=== PATIENT | male | born 1950 | race Two or more races ===

== ENCOUNTER 2017-05-23 05:06 | Inpatient (IN) | payer MEDICARE, MEDICAID ==
[~2017-05-23] VITALS: Ht 177.8 cm; Wt 76.5 kg
[~2017-05-23 05:06] MED LIST: AMLO5TAB2 PO; ASPI-498 OR; ATOR20TA50 PO; CLINDAMYCIN; CLOP75TA41 PO; FENO160T8 PO; ICOS1CAP OR; LISI-275 PO; METF-370 PO; METO1TAB9 PO; OMEP20CA74 OR; PRAVASTATIN PO
[2017-05-23 06:05] LABS: Urine RBC None Seen /hpf (0 - 3)
[2017-05-23 06:22] LABS: Urine Bilirubin Negative (Negative); Urine Blood Negative /uL (Negative); Urine Color Yellow (Yellow); Urine Glucose 1+ mg/dL (Normal); Urine Ketone Negative (Negative); Urine Mucus FEW (None Seen); Urine Nitrite Negative (Negative); Urine Squamous Epithelial Cell FEW /hpf (<5); Urine Urobilinogen Normal (Negative); Urine pH 5.5 (5.0-8.0)
[2017-05-23 06:23] LABS: Hematocrit 37.8 % (41.0-53.0); Hemoglobin 12.7 g/dL (13.5-17.5); Mean Corpuscular Hgb Conc. 33.6 g/dL (32.0-36.0); Mean Corpuscular Volume 89.3 fL (80.0-100.0); Mean Platelet Volume 8.1 fL (6.9-10.8); Platelet Count (auto) 210 10^3/uL (140-450); Red Cell Distribution Width 15.3 % (11.8-14.3); White Blood Cell 6.6 10^3/uL (4.4-10.8)
[2017-05-23 06:28] LABS: INR 0.92 (0.9-1.15)
[2017-05-23 06:40] LABS: Albumin 3.8 g/dL (3.4-5.0); Calcium 8.9 mg/dL (8.5-10.1)
[2017-05-23 06:43] LABS: BUN/Creatinine Ratio 21.5
[2017-05-23 06:46] LABS: Bilirubin, Total 0.3 mg/dL (0.2-1.0); Total Protein 7.4 g/dL (6.4-8.2)
[2017-05-23 07:01] LABS: Potassium 5.6 mmol/L (3.5-5.1)
[2017-05-23] MEDS ORDERED: ACET-3 PO (08:10)
[2017-05-23] MEDS ORDERED: ICOS1CAP OR (08:10)
[2017-05-23] MEDS ORDERED: INSUINJ49 SC (08:10)
[2017-05-23] MEDS ORDERED: LORA-622 PO (08:10)
[2017-05-23] MEDS ORDERED: SULF400T11 PO (08:11)
[2017-05-23] MEDS ORDERED: DOXY-216 PO (08:11)
[2017-05-23] MEDS ORDERED: FUROSEMIDE 40 MG/4 ML VIAL IV ONE (09:45)
[2017-05-23] MEDS: METOPROLOL SUCCINATE XL 50 MG TAB PO SCH (10:00)
[2017-05-23] MEDS ORDERED: PROPOFOL 10 MG/ML 20 ML IV ONE (10:09)
[2017-05-23] MEDS ORDERED: LIDOCAINE HCL 2 %PF INJ 10ML AMP IJ ONE (10:09)
[2017-05-23] MEDS ORDERED: NEOSTIGMINE 1 MG/ML INJ (10mg/10ML VIAL) ONE (10:19)
[2017-05-23] MEDS ORDERED: GLYCOPYRROLATE 0.2 MG/ML 1ML VIAL ONE (10:19)
[2017-05-23] MEDS: SODIUM CHLORIDE 0.9% 1,000 ML IV SCH ×2 (10:25→20:25)
[2017-05-23] MEDS ORDERED: MORPHINE SULF INJ 2 MG/ML SYRINGE 1ML IV PRN (10:30)
[2017-05-23] MEDS ORDERED: PROMETHAZINE HCL 25 MG/ML 1ML IV PRN (10:30)
[2017-05-23] MEDS ORDERED: DEXTROSE (50%) 50ML SYRG IV ONE (10:30)
[2017-05-23] MEDS ORDERED: DEXTROSE (50%) 50ML SYRG IV PRN (10:30)
[2017-05-23] MEDS ORDERED: ALBUTEROL SULF 2.5 MG/0.5ML(0.5%) NEB SOLN NEB ONE (10:30)
[2017-05-23] MEDS ORDERED: ACETAMINOPHEN 500 MG TAB PO PRN (10:30)
[2017-05-23] MEDS ORDERED: InsuLIN REG 1unit/0.01ml Soln (100units/ml) IV ONE (10:30)
[2017-05-23] MEDS ORDERED: NITROGLYCERIN 0.4 MG SL TAB SL PRN (10:30)
[2017-05-23] MEDS ORDERED: TEMAZEPAM 15 MG CAP PO PRN (10:30)
[2017-05-23] MEDS ORDERED: LORazepam 0.5 MG TAB PO PRN (10:30)
[2017-05-23] MEDS ORDERED: MORPHINE SULFATE 4 MG/ML SYRG IV PRN (10:30)
[2017-05-23] MEDS ORDERED: LACTULOSE 20Gm/30ML SOLN PO PRN (10:30)
[2017-05-23] MEDS ORDERED: SODIUM BICARBONATE 8.4 % INJ 50ML VIAL IV ONE (10:30)
[2017-05-23] MEDS ORDERED: amLODIPine BESYLATE 5 MG TAB PO ONE (10:45)
[2017-05-23] MEDS ORDERED: cefTRIAXone 1GM/10ml IVPUSH 10 ML IV ONE (10:45)
[2017-05-23] MEDS ORDERED: METOPROLOL SUCCINATE XL 50 MG TAB PO ONE (10:45)
[2017-05-23] MEDS ORDERED: MIDAZOLAM HCL 1MG/1ML-2 ML VIAL ONE (10:55)
[2017-05-23] MEDS ORDERED: CLINDAMYCIN 600MG IV 50 ML IV ONE (11:00)
[2017-05-23] MEDS ORDERED: METOCLOPRAMIDE HCL 5MG/ml INJ 2ml VIAL ONE (11:04)
[2017-05-23] MEDS ORDERED: fentaNYL CITRATE 100 MCG/2 ML VL ONE (11:07)
[2017-05-23] MEDS ORDERED: ONDANSETRON HCL 4 MG/2 ML VIAL IV ONE (11:15)
[2017-05-23] MEDS ORDERED: hydrALAZINE HCL 20 MG/ML VL IV PRN (11:15)
[2017-05-23] MEDS ORDERED: NALOXONE HCL 0.4 MG/ML VIAL IV PRN (11:15)
[2017-05-23] MEDS ORDERED: ACCU-CHEK COMFORT CURVE STRIP VI ONE (11:15)
[2017-05-23] MEDS ORDERED: HYDROmorphone HCL 2 MG/ML VL IV PRN (11:15)
[2017-05-23 11:19] LABS: Albumin 3.8 g/dL (3.4-5.0); BUN/Creatinine Ratio 20.2; Bilirubin, Total 0.3 mg/dL (0.2-1.0); Calcium 8.8 mg/dL (8.5-10.1); Total Protein 7.3 g/dL (6.4-8.2)
[2017-05-23 11:28] LABS: Potassium 5.9 mmol/L (3.5-5.1)
[2017-05-23] MEDS: ACCU-CHEK COMFORT CURVE STRIP VI SCH ×3 (11:30→21:55)
[2017-05-23] MEDS: InsuLIN REG 1unit/0.01ml Soln (100units/ml) SC SCH ×3 (11:30→22:18)
[2017-05-23] MEDS: HYDROcodone-ACET 5/325MG TAB PO PRN ×2 (13:34→18:49)
[2017-05-23 14:00] VITALS: BP 120/63
[2017-05-23] MEDS ORDERED: CLINDAMYCIN 600MG IV 50 ML IV SCH (14:00)
[2017-05-23 17:00] VITALS: BP 103/52
[2017-05-23] MEDS: CLINDAMYCIN 600MG IV 50 ML IV SCH (17:00)
[2017-05-23 17:12] VITALS: BP 102/59
[2017-05-23] MEDS: ATORVASTATIN 20 MG TAB PO SCH (21:56)
[2017-05-23] MEDS: [UNRECOGNIZED DRUG - OTHER] PO SCH (22:00)
[2017-05-23] MEDS: ICOSAPENT ETHYL PO SCH (22:00)
[2017-05-23 22:43] VITALS: BP 111/55
[2017-05-24] MEDS: CLINDAMYCIN 600MG IV 50 ML IV SCH ×3 (01:13→18:06)
[2017-05-24 05:10] VITALS: BP 128/60
[2017-05-24] MEDS: SODIUM CHLORIDE 0.9% 1,000 ML IV SCH ×2 (06:13→16:34)
[2017-05-24 06:30] LABS: Albumin 3.3 g/dL (3.4-5.0); BUN/Creatinine Ratio 15.6; Bilirubin, Total 0.3 mg/dL (0.2-1.0); Calcium 8.5 mg/dL (8.5-10.1); Potassium 5.2 mmol/L (3.5-5.1); Total Protein 6.6 g/dL (6.4-8.2)
[2017-05-24] MEDS: ACCU-CHEK COMFORT CURVE STRIP VI SCH ×4 (07:16→22:00)
[2017-05-24] MEDS: InsuLIN REG 1unit/0.01ml Soln (100units/ml) SC SCH ×4 (07:17→22:35)
[2017-05-24 09:00] VITALS: BP 129/59
[2017-05-24] MEDS: amLODIPine BESYLATE 5 MG TAB PO SCH (09:41)
[2017-05-24] MEDS: PANTOPRAZOLE 40 MG TAB PO SCH (09:42)
[2017-05-24] MEDS: METOPROLOL SUCCINATE XL 50 MG TAB PO SCH (09:42)
[2017-05-24] MEDS: cefTRIAXone 1GM/10ml IVPUSH 10 ML IV SCH (09:49)
[2017-05-24] MEDS: ICOSAPENT ETHYL PO SCH ×2 (09:49→22:00)
[2017-05-24] MEDS: [UNRECOGNIZED DRUG - OTHER] PO SCH ×2 (09:49→22:00)
[2017-05-24] MEDS: TRICOR PO SCH (09:50)
[2017-05-24] MEDS ORDERED: SODIUM POLYSTYRENE SULF 15GM/60ML SUSP PO ONE (10:00)
[2017-05-24] MEDS ORDERED: INFLUENZA QUAD 2017-2018 0.5 ML SYRG IM ONE (10:00)
[2017-05-24] MEDS ORDERED: LIDOCAINE 1% HCL (LOCAL ANESTH.) INJ 20ML MDV ID ONE (14:00)
[2017-05-24 17:00] VITALS: BP 144/68
[2017-05-24 22:00] VITALS: BP 122/55
[2017-05-24] MEDS: SODIUM CHLOR 0.9% PF (SALINE LOCK) 10ML VIAL IV SCH (22:00)
[2017-05-24] MEDS: ATORVASTATIN 20 MG TAB PO SCH (22:24)
[2017-05-25] MEDS: CLINDAMYCIN 600MG IV 50 ML IV SCH ×3 (02:26→18:33)
[2017-05-25] MEDS: SODIUM CHLORIDE 0.9% 1,000 ML IV SCH ×3 (02:27→21:41)
[2017-05-25 05:00] VITALS: BP 132/60
[2017-05-25] MEDS: InsuLIN REG 1unit/0.01ml Soln (100units/ml) SC SCH ×4 (06:55→21:41)
[2017-05-25] MEDS: ACCU-CHEK COMFORT CURVE STRIP VI SCH ×4 (06:55→21:37)
[2017-05-25 07:53] LABS: BUN/Creatinine Ratio 12.9; Calcium 8.1 mg/dL (8.5-10.1); Potassium 4.2 mmol/L (3.5-5.1)
[2017-05-25 08:00] VITALS: BP 120/59
[2017-05-25 09:00] VITALS: BP 120/59
[2017-05-25] MEDS: PANTOPRAZOLE 40 MG TAB PO SCH (09:31)
[2017-05-25] MEDS: cefTRIAXone 1GM/10ml IVPUSH 10 ML IV SCH (09:31)
[2017-05-25] MEDS: SODIUM CHLOR 0.9% PF (SALINE LOCK) 10ML VIAL IV SCH ×2 (09:31→21:37)
[2017-05-25] MEDS: amLODIPine BESYLATE 5 MG TAB PO SCH (09:32)
[2017-05-25] MEDS: METOPROLOL SUCCINATE XL 50 MG TAB PO SCH (09:32)
[2017-05-25] MEDS: [UNRECOGNIZED DRUG - OTHER] PO SCH ×2 (09:33→21:37)
[2017-05-25] MEDS: ICOSAPENT ETHYL PO SCH ×2 (09:33→21:37)
[2017-05-25] MEDS: TRICOR PO SCH (09:34)
[2017-05-25] MEDS ORDERED: MORPHINE SULFATE 4 MG/ML SYRG IV PRN (12:00)
[2017-05-25 13:00] VITALS: BP 131/57
[2017-05-25 17:14] VITALS: BP 156/66
[2017-05-25] MEDS: ATORVASTATIN 20 MG TAB PO SCH (21:37)
[2017-05-25 22:00] VITALS: BP 150/70
[2017-05-26] VITALS (7 sets, daily range): BP systolic 142–160; BP diastolic 59–68
[2017-05-26] MEDS: CLINDAMYCIN 600MG IV 50 ML IV SCH ×2 (00:23→10:12)
[2017-05-26] MEDS: ACCU-CHEK COMFORT CURVE STRIP VI SCH ×2 (06:29→11:30)
[2017-05-26] MEDS: InsuLIN REG 1unit/0.01ml Soln (100units/ml) SC SCH ×2 (06:53→13:00)
[2017-05-26] MEDS: SODIUM CHLORIDE 0.9% 1,000 ML IV SCH (08:14)
[2017-05-26] MEDS: ICOSAPENT ETHYL PO SCH (10:00)
[2017-05-26] MEDS: [UNRECOGNIZED DRUG - OTHER] PO SCH (10:00)
[2017-05-26] MEDS: TRICOR PO SCH (10:00)
[2017-05-26] MEDS: cefTRIAXone 1GM/10ml IVPUSH 10 ML IV SCH (10:12)
[2017-05-26] MEDS: SODIUM CHLOR 0.9% PF (SALINE LOCK) 10ML VIAL IV SCH (10:12)
[2017-05-26] MEDS: amLODIPine BESYLATE 5 MG TAB PO SCH (10:13)
[2017-05-26] MEDS: PANTOPRAZOLE 40 MG TAB PO SCH (10:13)
[2017-05-26] MEDS: METOPROLOL SUCCINATE XL 50 MG TAB PO SCH (10:14)
== END 2017-05-26 17:53 | disposition home or self-care (01) | DRG 623 ==
LOC: ER 05:11 → OR 1 05:12 → TELE-WESTW 05:13
PROVIDERS: ADMIT Podiatrist Foot & Ankle Surgery; ATTEND Family Medicine
PROC: 02HV33Z Insertion of Infusion Device into Superior Vena Cava, Percutaneous Approach (ICD-10-PCS; 2017-05-23)
PROC: 0JBR0ZZ Excision of Left Foot Subcutaneous Tissue and Fascia, Open Approach (ICD-10-PCS; 2017-05-23)
PROC: 0HRNXK3 Replacement of Left Foot Skin with Nonautologous Tissue Substitute, Full Thickness, External Approach (ICD-10-PCS; principal; 2017-05-23 11:06)
DX: E11.621 Type 2 diabetes mellitus with foot ulcer (principal); E87.1 Hypo-osmolality and hyponatremia; L97.529 Non-pressure chronic ulcer of other part of left foot with unspecified severity; E11.21 Type 2 diabetes mellitus with diabetic nephropathy; E11.40 Type 2 diabetes mellitus with diabetic neuropathy, unspecified; E11.52 Type 2 diabetes mellitus with diabetic peripheral angiopathy with gangrene; L03.116 Cellulitis of left lower limb; E11.65 Type 2 diabetes mellitus with hyperglycemia; E87.5 Hyperkalemia; E78.5 Hyperlipidemia, unspecified; F17.210 Nicotine dependence, cigarettes, uncomplicated; I10 Essential (primary) hypertension; L08.9 Local infection of the skin and subcutaneous tissue, unspecified; Z82.49 Family history of ischemic heart disease and other diseases of the circulatory system; Z83.3 Family history of diabetes mellitus; Z88.0 Allergy status to penicillin; Z89.432 Acquired absence of left foot; Z90.49 Acquired absence of other specified parts of digestive tract; Z23 Encounter for immunization
CPT/HCPCS: 36415; 36569; 71010; 71020; 80048; 80053; 80061; 81001; 82962; 83036; 84132; 85007; 85027; 85610; 85652; 85730; 87070; 87075; 87076; 87077; 87081; 87186; 93005; 94644; J1815; J2250; J2704; J3490

== ENCOUNTER → 2017-07-10 | Emergency (ER) | payer MEDICARE, MEDICAID ==
[~2017-07-10] MED LIST changes: +ACET-3 PO; -CLINDAMYCIN; +CLINDAMYCIN 600MG IV 50 ML IV ONE; +DOXY-216 PO; +INSUINJ49 SC; +LORA-622 PO; -PRAVASTATIN PO; +SULF400T11 PO
== END | disposition left against medical advice (07) ==
LOC: ER 21:02
DX: M79.673 Pain in unspecified foot (principal); Z53.21 Procedure and treatment not carried out due to patient leaving prior to being seen by health care provider

== ENCOUNTER 2017-07-11 04:10 | Day surgery (SDC) | payer MEDICARE, MEDICAID ==
[~2017-07-11] VITALS: Ht 172.7 cm; Wt 79.4 kg
[~2017-07-11 04:10] MED LIST changes: -CLINDAMYCIN 600MG IV 50 ML IV ONE
[2017-07-11 04:40] LABS: Basophils # (auto) 0.1 uL; Basophils % (auto) 0.9 % (0.0-2.0); Eosinophils # (auto) 0.2 uL; Eosinophils % (auto) 2.5 % (0.0-7.0); Hemoglobin 14.2 g/dL (13.5-17.5); Lymphocytes # (auto) 2.1 uL; Lymphocytes % (auto) 27.7 % (10.0-50.0); Mean Corpuscular Hemoglobin 31.1 pg (28.0-32.0); Mean Corpuscular Hgb Conc. 33.9 g/dL (32.0-36.0); Mean Corpuscular Volume 91.8 fL (80.0-100.0); Monocytes # (auto) 0.6 uL; Monocytes % (auto) 7.3 % (0.0-12.0); Neutrophils # (auto) 4.7 uL; Neutrophils % (auto) 61.6 % (37.0-80.0); Nucleated Red Blood Cells % 0.1 %; Platelet Count (auto) 228 10^3/uL (140-450); Red Blood Cells 4.57 10^6/uL (4.5-5.90); Red Cell Distribution Width 15.3 % (11.8-14.3); White Blood Cell 7.6 10^3/uL (4.4-10.8)
[2017-07-11 04:54] LABS: Albumin 3.7 g/dL (3.4-5.0); Calcium 9.1 mg/dL (8.5-10.1); Potassium 4.3 mmol/L (3.5-5.1)
[2017-07-11 04:55] LABS: BUN/Creatinine Ratio 17.7
[2017-07-11 04:59] LABS: Bilirubin, Total 0.3 mg/dL (0.2-1.0); Total Protein 7.2 g/dL (6.4-8.2)
[2017-07-11] MEDS ORDERED: SODIUM CHLORIDE 0.9% 1,000 ML IV ONE (08:27)
[2017-07-11 09:38] LABS: Urine Bacteria NONE SEEN /hpf (None Seen); Urine Blood TRACE /uL (Negative); Urine Mucus FEW (None Seen); Urine Specific Gravity 1.028 (1.001-1.035); Urine WBC 2 /hpf (0 - 3)
[2017-07-11 09:42] LABS: INR 0.92 (0.9-1.15)
[2017-07-11] MEDS ORDERED: NEOMYCIN-BACITRACIN-POLYM 15GM TOP OINT TOP ONE (10:47)
[2017-07-11] MEDS ORDERED: ceFAZolin 1GM VL ONE (10:47)
[2017-07-11] MEDS ORDERED: BUPIVACAINE 0.75% INJ 10ML MPV SDV IJ ONE (10:47)
[2017-07-11] MEDS ORDERED: PROPOFOL 10 MG/ML 20 ML IV ONE (11:21)
[2017-07-11] MEDS ORDERED: MIDAZOLAM HCL 1MG/1ML-2 ML VIAL ONE (11:21)
[2017-07-11] MEDS ORDERED: fentaNYL CITRATE 100 MCG/2 ML VL ONE (11:21)
[2017-07-11] MEDS ORDERED: MORPHINE SULFATE 4 MG/ML SYR/VIAL IV PRN (12:00)
[2017-07-11] MEDS ORDERED: hydrALAZINE HCL 20 MG/ML VL IV PRN (12:00)
[2017-07-11] MEDS ORDERED: ePHEDrine SULFATE 50 MG/ML AMP IV PRN (12:00)
[2017-07-11] MEDS ORDERED: ONDANSETRON HCL 4 MG/2 ML VIAL IV ONE (12:00)
[2017-07-11 13:15] VITALS: BP 142/72
== END 2017-07-11 13:15 | disposition home or self-care (01) ==
LOC: ER 04:10 → SUR 04:11 → ER 19:39
PROVIDERS: ATTEND Podiatrist
DX: L97.429 Non-pressure chronic ulcer of left heel and midfoot with unspecified severity (principal); Z88.0 Allergy status to penicillin; E66.9 Obesity, unspecified; Z68.26 Body mass index [BMI] 26.0-26.9, adult; E78.00 Pure hypercholesterolemia, unspecified; I10 Essential (primary) hypertension; E11.9 Type 2 diabetes mellitus without complications; F41.9 Anxiety disorder, unspecified; F17.210 Nicotine dependence, cigarettes, uncomplicated
CPT/HCPCS: 15004; 15275; 36415; 71046; 73630; 80053; 81001; 83735; 84443; 85025; 85610; 85730; 87070; 87075; 87076; 87205; 88304; 93005; J2250; J2704; J3010; J3490; 87077; 87186; J0690

== ENCOUNTER → 2017-08-08 | Outpatient (CLI) | payer MEDICARE, MEDICAID ==
[2017-08-08 09:41] LABS: Basophils # (auto) 0.1 uL; Basophils % (auto) 0.9 % (0.0-2.0); Eosinophils # (auto) 0.1 uL; Eosinophils % (auto) 1.8 % (0.0-7.0); Hematocrit 48.6 % (41.0-53.0); Hemoglobin 16.4 g/dL (13.5-17.5); Lymphocytes # (auto) 1.3 uL; Lymphocytes % (auto) 20.4 % (10.0-50.0); Mean Corpuscular Hemoglobin 30.7 pg (28.0-32.0); Mean Corpuscular Hgb Conc. 33.8 g/dL (32.0-36.0); Mean Corpuscular Volume 90.9 fL (80.0-100.0); Monocytes # (auto) 0.4 uL; Monocytes % (auto) 5.8 % (0.0-12.0); Neutrophils # (auto) 4.6 uL; Neutrophils % (auto) 71.1 % (37.0-80.0); Platelet Count (auto) 229 10^3/uL (140-450); Red Blood Cells 5.34 10^6/uL (4.5-5.90); White Blood Cell 6.5 10^3/uL (4.4-10.8)
[2017-08-08 09:45] LABS: Urine Bacteria NONE SEEN /hpf (None Seen); Urine Blood TRACE /uL (Negative); Urine Specific Gravity 1.008 (1.001-1.035); Urine WBC <1 /hpf (0 - 3)
[2017-08-08 10:09] LABS: Anion Gap 8 (5-15); BUN/Creatinine Ratio 14.2; Blood Urea Nitrogen 16 mg/dL (7-18); Calcium 9.3 mg/dL (8.5-10.1); Carbon Dioxide 28 mmol/L (21-32); Chloride 100 mmol/L (98-107); Cholesterol 163 mg/dL (< 200); GFR African American 83 mL/min; GFR Non-African American 69 mL/min; Glucose 199 mg/dL (74-106); HDL Cholesterol 27 mg/dL (40-59); Potassium 4.9 mmol/L (3.5-5.1); Sodium 136 mmol/L (136-145); Triglycerides 579 mg/dL (< 150)
== END | disposition home or self-care (01) ==
LOC: LAB 09:20
PROVIDERS: ATTEND Family Medicine
DX: E11.9 Type 2 diabetes mellitus without complications (principal); E78.5 Hyperlipidemia, unspecified; R35.0 Frequency of micturition; Z79.899 Other long term (current) drug therapy; Z87.891 Personal history of nicotine dependence
CPT/HCPCS: 36415; 80048; 80061; 81001; 82306; 83036; 84153; 84443; 85025

== ENCOUNTER → 2017-08-15 | Day surgery (SDC) | payer MEDICARE, MEDICAID ==
[~2017-08-15] VITALS: Ht 170.2 cm; Wt 72.6 kg
[~2017-08-15] MED LIST changes: +CLINDAMYCIN 600MG IV 50 ML IV ONE; +MIDAZOLAM HCL 1MG/1ML-2 ML VIAL ONE; +ONDANSETRON HCL 4 MG/2 ML VIAL IV ONE; +PROPOFOL 10 MG/ML 20 ML IV ONE; +SODIUM CHLORIDE 0.9% 1,000 ML IV ONE; +cefTRIAXone 1GM/10ml IVPUSH 10 ML IV ONE; +ePHEDrine SULFATE 50 MG/ML AMP IV PRN; +fentaNYL CITRATE 100 MCG/2 ML VL IV ONE; +fentaNYL CITRATE 100 MCG/2 ML VL ONE; +hydrALAZINE HCL 20 MG/ML VL IV PRN
[2017-08-15 07:54] LABS: Basophils # (auto) 0.1 uL; Eosinophils # (auto) 0.1 uL; Eosinophils % (auto) 1.9 % (0.0-7.0); Hematocrit 44.2 % (41.0-53.0); Lymphocytes # (auto) 1.7 uL; Lymphocytes % (auto) 25.7 % (10.0-50.0); Mean Corpuscular Hemoglobin 30.9 pg (28.0-32.0); Monocytes # (auto) 0.5 uL; Monocytes % (auto) 7.8 % (0.0-12.0); Neutrophils # (auto) 4.2 uL; Neutrophils % (auto) 63.6 % (37.0-80.0); Nucleated Red Blood Cells % 0.1 %; Platelet Count (auto) 202 10^3/uL (140-450); Red Blood Cells 4.86 10^6/uL (4.5-5.90); White Blood Cell 6.6 10^3/uL (4.4-10.8)
[2017-08-15 08:08] LABS: Albumin 3.6 g/dL (3.4-5.0); BUN/Creatinine Ratio 19.8; Calcium 8.8 mg/dL (8.5-10.1); INR 0.9 (0.9-1.15); Partial Thromboplastin Time 28.9 sec (22.64-33.71); Potassium 4.8 mmol/L (3.5-5.1); Prothrombin Time 9.8 sec (9.37-12.3)
[2017-08-15 08:10] LABS: Bilirubin, Total 0.4 mg/dL (0.2-1.0)
[2017-08-15 13:52] VITALS: BP 141/69
== END | disposition home or self-care (01) ==
LOC: ER 06:33 → SUR 06:34 → ER 11:11
PROVIDERS: ATTEND Podiatrist
DX: L97.521 Non-pressure chronic ulcer of other part of left foot limited to breakdown of skin (principal); E11.621 Type 2 diabetes mellitus with foot ulcer; Z88.0 Allergy status to penicillin; E66.9 Obesity, unspecified; I10 Essential (primary) hypertension; F41.9 Anxiety disorder, unspecified; F17.210 Nicotine dependence, cigarettes, uncomplicated; K21.9 Gastro-esophageal reflux disease without esophagitis; Z79.01 Long term (current) use of anticoagulants
CPT/HCPCS: 15004; 15275; 36415; 71046; 80053; 82962; 83735; 84443; 85025; 85610; 85730; 87070; 87075; 87077; 87186; 87205; 93005; J2250; J2704; J3010; J3490; J7030; Q4128

== ENCOUNTER 2017-09-05 07:19 | Day surgery (SDC) | payer MEDICARE, MEDICAID ==
[~2017-09-05] VITALS: Ht 175.3 cm; Wt 81.6 kg
[~2017-09-05 07:19] MED LIST changes: -CLINDAMYCIN 600MG IV 50 ML IV ONE; -MIDAZOLAM HCL 1MG/1ML-2 ML VIAL ONE; -ONDANSETRON HCL 4 MG/2 ML VIAL IV ONE; -PROPOFOL 10 MG/ML 20 ML IV ONE; -SODIUM CHLORIDE 0.9% 1,000 ML IV ONE; -cefTRIAXone 1GM/10ml IVPUSH 10 ML IV ONE; -ePHEDrine SULFATE 50 MG/ML AMP IV PRN; -fentaNYL CITRATE 100 MCG/2 ML VL IV ONE; -fentaNYL CITRATE 100 MCG/2 ML VL ONE; -hydrALAZINE HCL 20 MG/ML VL IV PRN
[2017-09-05 08:04] LABS: Basophils # (auto) 0.1 uL; Basophils % (auto) 0.9 % (0.0-2.0); Eosinophils # (auto) 0.2 uL; Eosinophils % (auto) 2.5 % (0.0-7.0); Hematocrit 43.8 % (41.0-53.0); Hemoglobin 14.9 g/dL (13.5-17.5); Lymphocytes # (auto) 1.7 uL; Lymphocytes % (auto) 24.7 % (10.0-50.0); Mean Corpuscular Hemoglobin 30.7 pg (28.0-32.0); Mean Corpuscular Hgb Conc. 34.1 g/dL (32.0-36.0); Monocytes # (auto) 0.6 uL; Monocytes % (auto) 8.3 % (0.0-12.0); Neutrophils # (auto) 4.5 uL; Neutrophils % (auto) 63.6 % (37.0-80.0); Nucleated Red Blood Cells % 0.1 %; Platelet Count (auto) 240 10^3/uL (140-450); Red Blood Cells 4.87 10^6/uL (4.5-5.90); Red Cell Distribution Width 13.6 % (11.8-14.3)
[2017-09-05 08:19] LABS: INR 0.89 (0.9-1.15); Partial Thromboplastin Time 28.9 sec (22.64-33.71); Prothrombin Time 9.7 sec (9.37-12.3)
[2017-09-05 08:41] LABS: Albumin 3.6 g/dL (3.4-5.0); BUN/Creatinine Ratio 14.3; Bilirubin, Total 0.2 mg/dL (0.2-1.0); Potassium 4.3 mmol/L (3.5-5.1); Total Protein 7.6 g/dL (6.4-8.2)
[2017-09-05] MEDS ORDERED: CLINDAMYCIN 600MG IV 100 ML IV ONE (14:53)
[2017-09-05] MEDS ORDERED: MIDAZOLAM HCL 1MG/1ML-2 ML VIAL ONE (15:14)
[2017-09-05] MEDS ORDERED: fentaNYL CITRATE 100 MCG/2 ML VL ONE (15:14)
[2017-09-05] MEDS ORDERED: MORPHINE SULFATE 4 MG/ML SYR/VIAL IV PRN (15:15)
[2017-09-05] MEDS ORDERED: MIDAZOLAM HCL 1MG/1ML-2 ML VIAL IV PRN (15:15)
[2017-09-05] MEDS ORDERED: LABETALOL HCL 5 MG/ML 4ML SYRINGE IV PRN (15:15)
[2017-09-05] MEDS ORDERED: KETOROLAC TROMETH 30 MG/ML 1ML VIAL ONE (15:15)
[2017-09-05] MEDS ORDERED: ONDANSETRON HCL 4 MG/2 ML VIAL IV ONE (15:15)
[2017-09-05] MEDS ORDERED: ACCU-CHEK COMFORT CURVE STRIP VI ONE (15:15)
[2017-09-05] MEDS ORDERED: ePHEDrine SULFATE 50 MG/ML AMP IV PRN (15:15)
[2017-09-05] MEDS ORDERED: PROPOFOL 10 MG/ML 20 ML IV ONE (15:15)
[2017-09-05] MEDS ORDERED: KETOROLAC TROMETH 30 MG/ML 1ML VIAL IV ONE (15:15)
[2017-09-05] MEDS ORDERED: MORPHINE SULFATE 4 MG/ML SYR/VIAL IV ONE (16:00)
[2017-09-05 16:12] VITALS: BP 132/64
== END 2017-09-05 16:12 | disposition home or self-care (01) ==
LOC: ER 07:19 → SUR 07:20
PROVIDERS: ATTEND Podiatrist
DX: E11.621 Type 2 diabetes mellitus with foot ulcer (principal); L97.529 Non-pressure chronic ulcer of other part of left foot with unspecified severity; Z88.0 Allergy status to penicillin; E66.9 Obesity, unspecified; F41.9 Anxiety disorder, unspecified; F17.210 Nicotine dependence, cigarettes, uncomplicated; I10 Essential (primary) hypertension; I25.10 Atherosclerotic heart disease of native coronary artery without angina pectoris
CPT/HCPCS: 15004; 15275; 36415; 80053; 82962; 85025; 85610; 85730; 87070; 87075; 87077; 87186; 87205; C1887; J1885; J2250; J2704; J3010; J3490; Q4128

== ENCOUNTER 2017-09-19 07:38 | Day surgery (SDC) | payer MEDICARE, MEDICAID ==
[~2017-09-19] VITALS: Ht 170.2 cm; Wt 68.0 kg
[2017-09-19] MEDS ORDERED: SODIUM CHLORIDE 0.9% 1,000 ML IV ONE (07:59)
[2017-09-19 08:25] LABS: Basophils # (auto) 0.1 uL; Basophils % (auto) 1.1 % (0.0-2.0); Eosinophils # (auto) 0.2 uL; Eosinophils % (auto) 2.2 % (0.0-7.0); Hematocrit 45.5 % (41.0-53.0); Hemoglobin 15.3 g/dL (13.5-17.5); Lymphocytes # (auto) 1.7 uL; Lymphocytes % (auto) 23.6 % (10.0-50.0); Mean Corpuscular Hemoglobin 30.4 pg (28.0-32.0); Mean Corpuscular Hgb Conc. 33.7 g/dL (32.0-36.0); Mean Corpuscular Volume 90.2 fL (80.0-100.0); Monocytes # (auto) 0.5 uL; Monocytes % (auto) 7.5 % (0.0-12.0); Neutrophils # (auto) 4.7 uL; Neutrophils % (auto) 65.6 % (37.0-80.0); Platelet Count (auto) 232 10^3/uL (140-450); Red Blood Cells 5.04 10^6/uL (4.5-5.90); Red Cell Distribution Width 13.7 % (11.8-14.3); White Blood Cell 7.1 10^3/uL (4.4-10.8)
[2017-09-19 08:43] LABS: Albumin 3.9 g/dL (3.4-5.0); BUN/Creatinine Ratio 14.3; Bilirubin, Total 0.5 mg/dL (0.2-1.0); Calcium 9.1 mg/dL (8.5-10.1); Potassium 4.5 mmol/L (3.5-5.1); Total Protein 7.7 g/dL (6.4-8.2)
[2017-09-19 08:47] LABS: INR 0.92 (0.9-1.15)
[2017-09-19 09:19] LABS: Urine Bacteria FEW /hpf (None Seen); Urine Blood TRACE /uL (Negative); Urine Specific Gravity 1.017 (1.001-1.035); Urine WBC <1 /hpf (0 - 3)
[2017-09-19] MEDS ORDERED: ceFAZolin 1GM/50ML 0 ML IV ONE (18:23)
[2017-09-19] MEDS ORDERED: CLINDAMYCIN 600MG IV 50 ML IV ONE (18:28)
[2017-09-19] MEDS ORDERED: MIDAZOLAM HCL 1MG/1ML-2 ML VIAL ONE (18:40)
[2017-09-19] MEDS ORDERED: DEXAMETHASONE SOD PHOS 10MG/1ML VIAL INJ ONE (18:40)
[2017-09-19] MEDS ORDERED: fentaNYL CITRATE 100 MCG/2 ML VL ONE (18:40)
[2017-09-19] MEDS ORDERED: PROPOFOL 10 MG/ML 20 ML IV ONE (18:48)
[2017-09-19 19:28] VITALS: BP 153/83
== END 2017-09-19 20:01 | disposition home or self-care (01) ==
LOC: ER 07:38 → SUR 07:39 → ER 16:18 → SUR 20:01
PROVIDERS: ATTEND Podiatrist Foot & Ankle Surgery
DX: E11.621 Type 2 diabetes mellitus with foot ulcer (principal); L97.529 Non-pressure chronic ulcer of other part of left foot with unspecified severity; F17.210 Nicotine dependence, cigarettes, uncomplicated; I10 Essential (primary) hypertension; I25.10 Atherosclerotic heart disease of native coronary artery without angina pectoris; Z88.0 Allergy status to penicillin; F10.99 Alcohol use, unspecified with unspecified alcohol-induced disorder
CPT/HCPCS: 15004; 15275; 36415; 71046; 73630; 80053; 81001; 82962; 83735; 85025; 85610; 85730; 87075; 87077; 87186; 87205; 93005; C1887; J1100; J2250; J2704; J3010; J3490; J7030; Q4126; J0690

== ENCOUNTER 2017-10-10 05:18 | Inpatient (IN) | payer MEDICARE, MEDICAID ==
[~2017-10-10] VITALS: Ht 170.2 cm; Wt 83.2 kg
[2017-10-10 06:15] LABS: Basophils # (auto) 0.1 uL; Basophils % (auto) 0.9 % (0.0-2.0); Eosinophils # (auto) 0.2 uL; Eosinophils % (auto) 3.3 % (0.0-7.0); Hematocrit 43.8 % (41.0-53.0); Hemoglobin 14.7 g/dL (13.5-17.5); Lymphocytes # (auto) 1.6 uL; Lymphocytes % (auto) 26.4 % (10.0-50.0); Mean Corpuscular Hemoglobin 30.1 pg (28.0-32.0); Mean Corpuscular Hgb Conc. 33.6 g/dL (32.0-36.0); Mean Corpuscular Volume 89.8 fL (80.0-100.0); Monocytes # (auto) 0.5 uL; Monocytes % (auto) 8.7 % (0.0-12.0); Neutrophils # (auto) 3.8 uL; Neutrophils % (auto) 60.7 % (37.0-80.0); Nucleated Red Blood Cells % 0.1 %; Platelet Count (auto) 224 10^3/uL (140-450); Red Blood Cells 4.88 10^6/uL (4.5-5.90); Red Cell Distribution Width 13.8 % (11.8-14.3); White Blood Cell 6.2 10^3/uL (4.4-10.8)
[2017-10-10 06:20] LABS: Urine Bacteria NONE SEEN /hpf (None Seen); Urine Blood TRACE /uL (Negative); Urine Specific Gravity 1.012 (1.001-1.035); Urine WBC <1 /hpf (0 - 3)
[2017-10-10 06:27] LABS: INR 0.87 (0.9-1.15); Partial Thromboplastin Time 28.9 sec (22.64-33.71); Prothrombin Time 9.5 sec (9.37-12.3)
[2017-10-10 06:34] LABS: Alanine Aminotransferase 19 U/L (16-61); Albumin 3.5 g/dL (3.4-5.0); Alkaline Phosphatase 56 U/L (45-117); Anion Gap 8 (5-15); Aspartate Aminotransferase 7 U/L (15-37); BUN/Creatinine Ratio 15.5; Bilirubin, Total 0.2 mg/dL (0.2-1.0); Blood Urea Nitrogen 20 mg/dL (7-18); Calcium 8.7 mg/dL (8.5-10.1); Carbon Dioxide 25 mmol/L (21-32); Chloride 104 mmol/L (98-107); GFR African American 72 mL/min; GFR Non-African American 59 mL/min; Glucose 270 mg/dL (74-106); Magnesium 2.2 mg/dL (1.6-2.6); Potassium 4.4 mmol/L (3.5-5.1); Sodium 137 mmol/L (136-145); Total Protein 6.9 g/dL (6.4-8.2)
[2017-10-10] MEDS ORDERED: DEXTROSE (50%) 50ML SYRG IV PRN (11:45)
[2017-10-10] MEDS ORDERED: MORPHINE SULFATE 4 MG/ML SYR/VIAL IV PRN ×2 (11:45)
[2017-10-10] MEDS ORDERED: ACETAMINOPHEN 500 MG TAB PO PRN (11:45)
[2017-10-10] MEDS ORDERED: LORazepam 0.5 MG TAB PO PRN (11:45)
[2017-10-10] MEDS ORDERED: PROMETHAZINE HCL 25 MG/ML 1ML IV PRN (11:45)
[2017-10-10] MEDS ORDERED: HYDROcodone-ACET 5/325MG TAB PO PRN (11:45)
[2017-10-10] MEDS ORDERED: NITROGLYCERIN 0.4 MG SL TAB SL PRN (11:45)
[2017-10-10] MEDS ORDERED: LACTULOSE 20Gm/30ML SOLN PO PRN (11:45)
[2017-10-10] MEDS ORDERED: TEMAZEPAM 15 MG CAP PO PRN (11:45)
[2017-10-10] MEDS: PANTOPRAZOLE 40 MG TAB PO SCH (11:50)
[2017-10-10] MEDS: SODIUM CHLORIDE 0.9% 1,000 ML IV SCH ×2 (11:58→22:33)
[2017-10-10] MEDS: cefTRIAXone 1GM/10ml IVPUSH 10 ML IV SCH (11:59)
[2017-10-10] MEDS: ENOXAPARIN SOD 40 MG/0.4 ML SYRINGE SC SCH (12:00)
[2017-10-10] MEDS: ACCU-CHEK COMFORT CURVE STRIP VI SCH ×2 (12:01→18:54)
[2017-10-10] MEDS: InsuLIN REG 1unit/0.01ml Soln (100units/ml) SC SCH ×2 (12:08→18:00)
[2017-10-10] MEDS: CLINDAMYCIN 600MG IV 50 ML IV SCH ×2 (13:52→22:31)
[2017-10-10 20:00] VITALS: BP 151/77
[2017-10-10 22:00] VITALS: BP 151/77
[2017-10-11] MEDS: InsuLIN REG 1unit/0.01ml Soln (100units/ml) SC SCH ×4 (00:24→17:56)
[2017-10-11] MEDS: ACCU-CHEK COMFORT CURVE STRIP VI SCH ×4 (00:24→17:56)
[2017-10-11 05:00] VITALS: BP 129/63
[2017-10-11] MEDS: CLINDAMYCIN 600MG IV 50 ML IV SCH ×3 (06:27→21:57)
[2017-10-11 06:39] LABS: Basophils # (auto) 0.1 uL; Eosinophils # (auto) 0.2 uL; Eosinophils % (auto) 2.7 % (0.0-7.0); Hematocrit 42.3 % (41.0-53.0); Hemoglobin 14.2 g/dL (13.5-17.5); Lymphocytes # (auto) 1.7 uL; Lymphocytes % (auto) 28.5 % (10.0-50.0); Mean Corpuscular Hgb Conc. 33.5 g/dL (32.0-36.0); Mean Corpuscular Volume 89.7 fL (80.0-100.0); Monocytes # (auto) 0.5 uL; Monocytes % (auto) 7.9 % (0.0-12.0); Neutrophils # (auto) 3.7 uL; Neutrophils % (auto) 59.9 % (37.0-80.0); Nucleated Red Blood Cells % 0.2 %; Platelet Count (auto) 207 10^3/uL (140-450); Red Blood Cells 4.71 10^6/uL (4.5-5.90); Red Cell Distribution Width 13.8 % (11.8-14.3); White Blood Cell 6.1 10^3/uL (4.4-10.8)
[2017-10-11 06:51] LABS: Calcium 8.4 mg/dL (8.5-10.1); Potassium 4.7 mmol/L (3.5-5.1)
[2017-10-11 06:52] LABS: BUN/Creatinine Ratio 15.4
[2017-10-11 06:55] LABS: Bilirubin, Total 0.5 mg/dL (0.2-1.0); Total Protein 6.5 g/dL (6.4-8.2)
[2017-10-11 09:00] VITALS: BP 133/54
[2017-10-11] MEDS: PANTOPRAZOLE 40 MG TAB PO SCH (11:09)
[2017-10-11] MEDS: ENOXAPARIN SOD 40 MG/0.4 ML SYRINGE SC SCH (11:09)
[2017-10-11] MEDS: cefTRIAXone 1GM/10ml IVPUSH 10 ML IV SCH (11:09)
[2017-10-11] MEDS: SODIUM CHLORIDE 0.9% 1,000 ML IV SCH ×2 (11:18→17:32)
[2017-10-11 13:00] VITALS: BP 162/60
[2017-10-11 17:09] VITALS: BP 155/61
[2017-10-11 20:00] VITALS: BP 130/53
[2017-10-11 21:53] VITALS: BP 130/53
[2017-10-12] MEDS: ACCU-CHEK COMFORT CURVE STRIP VI SCH ×4 (00:34→18:44)
[2017-10-12] MEDS: InsuLIN REG 1unit/0.01ml Soln (100units/ml) SC SCH ×4 (00:34→18:44)
[2017-10-12 05:25] VITALS: BP 129/61
[2017-10-12] MEDS: SODIUM CHLORIDE 0.9% 1,000 ML IV SCH ×2 (05:28→23:32)
[2017-10-12] MEDS: CLINDAMYCIN 600MG IV 50 ML IV SCH (05:28)
[2017-10-12 09:00] VITALS: BP 145/63
[2017-10-12] MEDS: PANTOPRAZOLE 40 MG TAB PO SCH (09:29)
[2017-10-12] MEDS: ENOXAPARIN SOD 40 MG/0.4 ML SYRINGE SC SCH (09:30)
[2017-10-12] MEDS ORDERED: VANCOMYCIN 1GM/250ML 250 ML IV ONE (09:30)
[2017-10-12] MEDS ORDERED: VANCOMYCIN PER PHARMACY 0 MG IV SCH (09:30)
[2017-10-12] MEDS ORDERED: VANCOMYCIN 1,250 MG in D5W 5% 250 ML IV SCH (10:00)
[2017-10-12] MEDS ORDERED: LIDOCAINE 1% (LOCAL ANESTH.) PF 5ml SDV ID ONE (10:45)
[2017-10-12] MEDS: VANCOMYCIN 1,250 MG in SODIUM CHL 0.9% 250 ML IV SCH ×2 (11:07→22:02)
[2017-10-12 13:00] VITALS: BP 127/64
[2017-10-12 17:00] VITALS: BP 148/67
[2017-10-12 22:00] VITALS: BP 163/70
[2017-10-12] MEDS: SODIUM CHLOR 0.9% PF (SALINE LOCK) 10ML VIAL/SYR IV SCH (22:02)
[2017-10-13] MEDS: ACCU-CHEK COMFORT CURVE STRIP VI SCH ×5 (00:12→23:40)
[2017-10-13] MEDS: InsuLIN REG 1unit/0.01ml Soln (100units/ml) SC SCH ×5 (00:12→23:41)
[2017-10-13 05:50] VITALS: BP 145/73
[2017-10-13 06:41] LABS: Basophils # (auto) 0.1 uL; Basophils % (auto) 0.9 % (0.0-2.0); Eosinophils # (auto) 0.1 uL; Hematocrit 43.2 % (41.0-53.0); Hemoglobin 14.7 g/dL (13.5-17.5); Lymphocytes # (auto) 1.4 uL; Lymphocytes % (auto) 23.1 % (10.0-50.0); Mean Corpuscular Hemoglobin 30.3 pg (28.0-32.0); Mean Corpuscular Volume 89.3 fL (80.0-100.0); Monocytes # (auto) 0.5 uL; Monocytes % (auto) 8.8 % (0.0-12.0); Neutrophils # (auto) 3.9 uL; Neutrophils % (auto) 65.2 % (37.0-80.0); Nucleated Red Blood Cells % 0.1 %; Platelet Count (auto) 206 10^3/uL (140-450); Red Blood Cells 4.84 10^6/uL (4.5-5.90); Red Cell Distribution Width 13.7 % (11.8-14.3)
[2017-10-13 07:33] LABS: BUN/Creatinine Ratio 14.9; Calcium 8.7 mg/dL (8.5-10.1)
[2017-10-13] MEDS ORDERED: MEPERIDINE HCL (50 MG/ML) 1 ML VIAL ONE (08:21)
[2017-10-13] MEDS ORDERED: fentaNYL CITRATE 100 MCG/2 ML VL ONE (08:21)
[2017-10-13] MEDS ORDERED: MIDAZOLAM HCL 1MG/1ML-2 ML VIAL ONE (08:21)
[2017-10-13] MEDS ORDERED: HYDROmorphone HCL 2 MG/ML VL IV PRN (08:45)
[2017-10-13] MEDS ORDERED: ACCU-CHEK COMFORT CURVE STRIP VI ONE (08:45)
[2017-10-13] MEDS ORDERED: LABETALOL HCL 5 MG/ML 4ML SYRINGE IV PRN (08:45)
[2017-10-13] MEDS ORDERED: MORPHINE SULFATE 4 MG/ML SYR/VIAL IV PRN (08:45)
[2017-10-13] MEDS ORDERED: ONDANSETRON HCL 4 MG/2 ML VIAL IV ONE (08:45)
[2017-10-13] MEDS ORDERED: KETOROLAC TROMETH 30 MG/ML 1ML VIAL IV ONE (08:45)
[2017-10-13] MEDS ORDERED: ePHEDrine SULFATE 50 MG/ML AMP IV PRN (08:45)
[2017-10-13 09:00] VITALS: BP 155/72
[2017-10-13] MEDS: SODIUM CHLORIDE 0.9% 1,000 ML IV SCH ×2 (09:32→21:49)
[2017-10-13] MEDS ORDERED: DEXAMETHASONE SOD PHOS 10MG/1ML VIAL INJ ONE (09:49)
[2017-10-13] MEDS ORDERED: PROPOFOL 10 MG/ML 20 ML IV ONE (09:49)
[2017-10-13] MEDS ORDERED: KETOROLAC TROMETH 30 MG/ML 1ML VIAL ONE (09:50)
[2017-10-13] MEDS: VANCOMYCIN 1,250 MG in SODIUM CHL 0.9% 250 ML IV SCH ×2 (09:58→22:00)
[2017-10-13] MEDS: SODIUM CHLOR 0.9% PF (SALINE LOCK) 10ML VIAL/SYR IV SCH ×2 (10:00→22:00)
[2017-10-13] MEDS ORDERED: MORPHINE SULFATE 4 MG/ML SYR/VIAL IV ONE (10:00)
[2017-10-13] MEDS ORDERED: LABETALOL HCL 5 MG/ML ML 20ML VIAL IV ONE ×2 (10:43)
[2017-10-13 12:51] VITALS: BP 139/70
[2017-10-13] MEDS: PANTOPRAZOLE 40 MG TAB PO SCH (12:59)
[2017-10-13 17:00] VITALS: BP 122/59
[2017-10-13 22:00] VITALS: BP 115/53
[2017-10-14 05:28] VITALS: BP 125/44
[2017-10-14] MEDS: ACCU-CHEK COMFORT CURVE STRIP VI SCH ×3 (06:14→17:45)
[2017-10-14] MEDS: SODIUM CHLORIDE 0.9% 1,000 ML IV SCH ×2 (06:14→15:32)
[2017-10-14] MEDS: InsuLIN REG 1unit/0.01ml Soln (100units/ml) SC SCH ×3 (06:14→17:46)
[2017-10-14 08:12] VITALS: BP 135/56
[2017-10-14] MEDS: PANTOPRAZOLE 40 MG TAB PO SCH (09:59)
[2017-10-14] MEDS: VANCOMYCIN 1,250 MG in SODIUM CHL 0.9% 250 ML IV SCH (09:59)
[2017-10-14] MEDS: SODIUM CHLOR 0.9% PF (SALINE LOCK) 10ML VIAL/SYR IV SCH ×2 (09:59→22:15)
[2017-10-14 13:00] VITALS: BP 141/51
[2017-10-14 17:21] VITALS: BP 154/54
[2017-10-14 21:25] VITALS: BP_SYST 114; BP_SYST 138; BP_DIAS 41; BP_DIAS 52
[2017-10-14] MEDS: VANCOMYCIN 1,250 MG in D5W 5% 250 ML IV SCH (22:15)
[2017-10-15] MEDS: ACCU-CHEK COMFORT CURVE STRIP VI SCH ×4 (00:03→17:43)
[2017-10-15] MEDS: InsuLIN REG 1unit/0.01ml Soln (100units/ml) SC SCH ×4 (00:03→17:42)
[2017-10-15] MEDS: SODIUM CHLORIDE 0.9% 1,000 ML IV SCH ×3 (01:32→21:32)
[2017-10-15 05:47] LABS: Basophils # (auto) 0 uL; Basophils % (auto) 0.2 % (0.0-2.0); Eosinophils # (auto) 0.1 uL; Eosinophils % (auto) 0.6 % (0.0-7.0); Hemoglobin 13.2 g/dL (13.5-17.5); Lymphocytes # (auto) 1.5 uL; Lymphocytes % (auto) 14.7 % (10.0-50.0); Mean Corpuscular Hgb Conc. 33.9 g/dL (32.0-36.0); Mean Corpuscular Volume 88.4 fL (80.0-100.0); Monocytes # (auto) 0.8 uL; Monocytes % (auto) 8.3 % (0.0-12.0); Neutrophils # (auto) 7.7 uL; Neutrophils % (auto) 76.2 % (37.0-80.0); Nucleated Red Blood Cells % 0.1 %; Platelet Count (auto) 209 10^3/uL (140-450); Red Blood Cells 4.41 10^6/uL (4.5-5.90); Red Cell Distribution Width 14.2 % (11.8-14.3); White Blood Cell 10.2 10^3/uL (4.4-10.8)
[2017-10-15 05:50] VITALS: BP 118/45
[2017-10-15 06:00] LABS: BUN/Creatinine Ratio 24.3; Calcium 8.3 mg/dL (8.5-10.1); Potassium 3.9 mmol/L (3.5-5.1)
[2017-10-15 08:00] VITALS: BP 114/54
[2017-10-15 08:33] VITALS: BP 114/54
[2017-10-15] MEDS: VANCOMYCIN 1,250 MG in D5W 5% 250 ML IV SCH ×2 (10:16→22:00)
[2017-10-15] MEDS: PANTOPRAZOLE 40 MG TAB PO SCH (10:17)
[2017-10-15] MEDS: SODIUM CHLOR 0.9% PF (SALINE LOCK) 10ML VIAL/SYR IV SCH ×2 (10:17→20:00)
[2017-10-15 13:02] VITALS: BP 156/49
[2017-10-15] MEDS ORDERED: LIDOCAINE 2%HCL (LOCAL ANESTH.) INJ 20ML MDV ONE (13:18)
[2017-10-15] MEDS ORDERED: IOHEXOL 350 MG/ML 100ML IJ ONE (13:18)
[2017-10-15] MEDS ORDERED: MIDAZOLAM HCL 1MG/1ML-2 ML VIAL ONE (13:29)
[2017-10-15] MEDS ORDERED: fentaNYL CITRATE 100 MCG/2 ML VL ONE (13:29)
[2017-10-15] MEDS ORDERED: ANGIOMAX 250 MG VIAL IV ONE (13:29)
[2017-10-15] MEDS ORDERED: SODIUM CHL 0.9% 50 ML ONE (13:29)
[2017-10-15] MEDS ORDERED: ASPirin 325 MG TAB ONE (14:13)
[2017-10-15] MEDS ORDERED: CLOPIDOGREL 300 MG TAB ONE (14:13)
[2017-10-15 16:35] VITALS: BP 146/55
[2017-10-15 22:18] VITALS: BP 135/63
[2017-10-16] MEDS: ACCU-CHEK COMFORT CURVE STRIP VI SCH ×4 (00:15→18:01)
[2017-10-16] MEDS: InsuLIN REG 1unit/0.01ml Soln (100units/ml) SC SCH ×4 (00:20→18:01)
[2017-10-16 06:07] LABS: Potassium 3.9 mmol/L (3.5-5.1)
[2017-10-16 06:11] LABS: BUN/Creatinine Ratio 24.5; Calcium 8.5 mg/dL (8.5-10.1)
[2017-10-16 06:16] VITALS: BP 109/61
[2017-10-16 06:23] LABS: Bilirubin, Total 0.5 mg/dL (0.2-1.0); Total Protein 6.3 g/dL (6.4-8.2)
[2017-10-16] MEDS: SODIUM CHLORIDE 0.9% 1,000 ML IV SCH ×2 (07:32→17:38)
[2017-10-16 08:00] VITALS: BP 143/56
[2017-10-16 08:19] VITALS: BP 143/56
[2017-10-16] MEDS: VANCOMYCIN 1,250 MG in D5W 5% 250 ML IV SCH ×2 (09:52→09:58)
[2017-10-16] MEDS: CLOPIDOGREL BISULFATE 75 MG TAB PO SCH (09:52)
[2017-10-16] MEDS: PANTOPRAZOLE 40 MG TAB PO SCH (09:52)
[2017-10-16] MEDS: SODIUM CHLOR 0.9% PF (SALINE LOCK) 10ML VIAL/SYR IV SCH ×2 (10:00→22:00)
[2017-10-16 11:55] VITALS: BP 151/55
[2017-10-16 16:26] VITALS: BP 134/65
[2017-10-16 22:00] VITALS: BP 186/57
[2017-10-17] MEDS: ACCU-CHEK COMFORT CURVE STRIP VI SCH ×3 (00:19→12:34)
[2017-10-17] MEDS: InsuLIN REG 1unit/0.01ml Soln (100units/ml) SC SCH ×3 (00:20→12:34)
[2017-10-17] MEDS: VANCOMYCIN 1,250 MG in D5W 5% 250 ML IV SCH (01:42)
[2017-10-17] MEDS: SODIUM CHLORIDE 0.9% 1,000 ML IV SCH ×2 (03:32→13:32)
[2017-10-17 05:12] VITALS: BP 163/65
[2017-10-17 07:53] VITALS: BP 142/45
[2017-10-17] MEDS: SODIUM CHLOR 0.9% PF (SALINE LOCK) 10ML VIAL/SYR IV SCH (10:00)
[2017-10-17] MEDS: CLOPIDOGREL BISULFATE 75 MG TAB PO SCH (10:03)
[2017-10-17] MEDS: PANTOPRAZOLE 40 MG TAB PO SCH (10:03)
[2017-10-17 12:01] VITALS: BP 159/63
== END 2017-10-17 15:00 | disposition home health service (06) | DRG 504 ==
LOC: ER 05:19 → TELE 05:20 → TELE-CENTR 18:13
PROVIDERS: ADMIT Internal Medicine; ATTEND Family Medicine
PROC: 02HV33Z Insertion of Infusion Device into Superior Vena Cava, Percutaneous Approach (ICD-10-PCS; 2017-10-12)
PROC: 0QBM0ZZ Excision of Left Tarsal, Open Approach (ICD-10-PCS; 2017-10-13)
PROC: 0QBP0ZZ Excision of Left Metatarsal, Open Approach (ICD-10-PCS; principal; 2017-10-13 09:16)
PROC: 04CL3ZZ Extirpation of Matter from Left Femoral Artery, Percutaneous Approach (ICD-10-PCS; 2017-10-15)
PROC: 047L3Z1 Dilation of Left Femoral Artery using Drug-Coated Balloon, Percutaneous Approach (ICD-10-PCS; 2017-10-15)
PROC: B41G1ZZ Fluoroscopy of Left Lower Extremity Arteries using Low Osmolar Contrast (ICD-10-PCS; 2017-10-15)
PROC: B41F1ZZ Fluoroscopy of Right Lower Extremity Arteries using Low Osmolar Contrast (ICD-10-PCS; 2017-10-15)
DX: T87.44 Infection of amputation stump, left lower extremity (principal); L03.116 Cellulitis of left lower limb; E11.621 Type 2 diabetes mellitus with foot ulcer; E11.51 Type 2 diabetes mellitus with diabetic peripheral angiopathy without gangrene; M86.8X7 Other osteomyelitis, ankle and foot; T87.89 Other complications of amputation stump; E11.65 Type 2 diabetes mellitus with hyperglycemia; I70.202 Unspecified atherosclerosis of native arteries of extremities, left leg; E78.5 Hyperlipidemia, unspecified; I10 Essential (primary) hypertension; Y83.5 Amputation of limb(s) as the cause of abnormal reaction of the patient, or of later complication, without mention of misadventure at the time of the procedure; K59.00 Constipation, unspecified; E11.69 Type 2 diabetes mellitus with other specified complication; F17.210 Nicotine dependence, cigarettes, uncomplicated; E78.00 Pure hypercholesterolemia, unspecified; L97.529 Non-pressure chronic ulcer of other part of left foot with unspecified severity; Z79.4 Long term (current) use of insulin; Z82.49 Family history of ischemic heart disease and other diseases of the circulatory system; Z83.3 Family history of diabetes mellitus; Z89.432 Acquired absence of left foot; Z88.0 Allergy status to penicillin; Z79.899 Other long term (current) drug therapy; Z90.49 Acquired absence of other specified parts of digestive tract; Y92.89 Other specified places as the place of occurrence of the external cause
CPT/HCPCS: 36415; 36569; 71045; 73620; 73718; 80048; 80053; 80202; 81001; 82962; 83036; 83735; 83880; 84484; 85025; 85610; 85652; 85730; 87040; 87070; 87075; 87077; 87081; 87086; 87186; 87205; 93005; 93926; 96372; 96374; 99152; J1100; J1815; J1885; J2250; J2704; J3490; J7060

== ENCOUNTER 2018-01-28 05:48 | Inpatient (IN) | payer MEDICARE, MEDICAID ==
[~2018-01-28] VITALS: Ht 172.7 cm; Wt 77.0 kg
[2018-01-28 07:40] LABS: Urine Bacteria NONE SEEN /hpf (None Seen); Urine Blood TRACE /uL (Negative); Urine Specific Gravity 1.014 (1.001-1.035); Urine WBC <1 /hpf (0 - 3)
[2018-01-28 08:54] LABS: Basophils # (auto) 0.1 uL; Basophils % (auto) 0.7 % (0.0-2.0); Eosinophils # (auto) 0.3 uL; Eosinophils % (auto) 3.9 % (0.0-7.0); Hematocrit 43.3 % (41.0-53.0); Hemoglobin 14.7 g/dL (13.5-17.5); Lymphocytes # (auto) 1.4 uL; Lymphocytes % (auto) 17.5 % (10.0-50.0); Mean Corpuscular Hemoglobin 29.9 pg (28.0-32.0); Mean Corpuscular Volume 88.1 fL (80.0-100.0); Monocytes # (auto) 0.6 uL; Monocytes % (auto) 6.8 % (0.0-12.0); Neutrophils # (auto) 5.8 uL; Neutrophils % (auto) 71.1 % (37.0-80.0); Nucleated Red Blood Cells % 0.2 %; Platelet Count (auto) 229 10^3/uL (140-450); Red Blood Cells 4.92 10^6/uL (4.5-5.90); Red Cell Distribution Width 14.5 % (11.8-14.3); White Blood Cell 8.2 10^3/uL (4.4-10.8)
[2018-01-28 09:07] LABS: Albumin 3.6 g/dL (3.4-5.0); BUN/Creatinine Ratio 17.2; Calcium 9.3 mg/dL (8.5-10.1); Potassium 4.8 mmol/L (3.5-5.1)
[2018-01-28 09:10] LABS: Bilirubin, Total 0.4 mg/dL (0.2-1.0); Total Protein 7.4 g/dL (6.4-8.2)
[2018-01-28] MEDS ORDERED: SODIUM CHLORIDE 0.9% 1,000 ML IV ONE (11:10)
[2018-01-28] MEDS ORDERED: cefTRIAXone 1GM/10ml IVPUSH 10 ML IV ONE (13:15)
[2018-01-28] MEDS ORDERED: TEMAZEPAM 15 MG CAP PO PRN (13:15)
[2018-01-28] MEDS ORDERED: DEXTROSE (50%) 50ML SYRG IV PRN (13:15)
[2018-01-28] MEDS ORDERED: ONDANSETRON HCL 4 MG/2 ML VIAL IV PRN (13:15)
[2018-01-28] MEDS ORDERED: MORPHINE SULF INJ 2 MG/ML SYRINGE 1ML IV PRN ×2 (13:15)
[2018-01-28] MEDS ORDERED: DOCUSATE SOD 100 MG CAP PO PRN (13:15)
[2018-01-28] MEDS ORDERED: ACETAMINOPHEN 325 MG TAB PO PRN (13:15)
[2018-01-28] MEDS ORDERED: NITROGLYCERIN 0.4 MG SL TAB SL PRN (13:15)
[2018-01-28] MEDS ORDERED: SILVER SULFADIAZINE 1 % TOPICAL CREAM 50GM TOP ONE (13:45)
[2018-01-28] MEDS: CLINDAMYCIN 300MG IV 50 ML IV SCH ×2 (14:10→23:06)
[2018-01-28] MEDS: SODIUM CHLOR 0.9% PF (SALINE LOCK) 10ML VIAL/SYR IV SCH ×2 (14:12→22:00)
[2018-01-28] MEDS: ACCU-CHEK COMFORT CURVE STRIP VI SCH ×2 (17:41→22:00)
[2018-01-28] MEDS: InsuLIN REG 1unit/0.01ml Soln (100units/ml) SC SCH ×2 (17:49→23:07)
[2018-01-28 20:10] VITALS: BP 135/69
[2018-01-28 22:00] VITALS: BP 136/57
[2018-01-28] MEDS: ATORVASTATIN 20 MG TAB PO SCH (23:05)
[2018-01-28] MEDS: ASCORBIC ACID 500 MG TAB PO SCH (23:05)
[2018-01-28] MEDS: FAMOTIDINE 20 MG TAB PO SCH (23:05)
[2018-01-28] MEDS: DAKINS QUARTER STR 0.125% (NaHypochlorite) 473 ML TOPICAL SOL TOP SCH (23:06)
[2018-01-29] MEDS ORDERED: OMEP20TA PO (02:05)
[2018-01-29 05:00] VITALS: BP 142/71
[2018-01-29] MEDS: SODIUM CHLOR 0.9% PF (SALINE LOCK) 10ML VIAL/SYR IV SCH ×3 (06:00→21:25)
[2018-01-29] MEDS: CLINDAMYCIN 300MG IV 50 ML IV SCH ×2 (06:43→13:42)
[2018-01-29] MEDS: ACCU-CHEK COMFORT CURVE STRIP VI SCH ×4 (06:44→22:01)
[2018-01-29] MEDS: InsuLIN REG 1unit/0.01ml Soln (100units/ml) SC SCH ×4 (06:44→22:01)
[2018-01-29 07:02] LABS: Basophils # (auto) 0.1 uL; Basophils % (auto) 0.8 % (0.0-2.0); Eosinophils # (auto) 0.3 uL; Eosinophils % (auto) 4.5 % (0.0-7.0); Hematocrit 40.2 % (41.0-53.0); Hemoglobin 13.8 g/dL (13.5-17.5); Lymphocytes # (auto) 1.6 uL; Lymphocytes % (auto) 21.3 % (10.0-50.0); Mean Corpuscular Hemoglobin 30.1 pg (28.0-32.0); Mean Corpuscular Hgb Conc. 34.4 g/dL (32.0-36.0); Mean Corpuscular Volume 87.5 fL (80.0-100.0); Monocytes # (auto) 0.6 uL; Monocytes % (auto) 8.5 % (0.0-12.0); Neutrophils % (auto) 64.9 % (37.0-80.0); Platelet Count (auto) 204 10^3/uL (140-450); Red Blood Cells 4.59 10^6/uL (4.5-5.90); Red Cell Distribution Width 14.3 % (11.8-14.3); White Blood Cell 7.6 10^3/uL (4.4-10.8)
[2018-01-29 07:06] LABS: INR 0.9 (0.9-1.15); Prothrombin Time 9.7 sec (9.27-12.13)
[2018-01-29 07:14] LABS: Albumin 3.1 g/dL (3.4-5.0); BUN/Creatinine Ratio 16.3; Bilirubin, Total 0.3 mg/dL (0.2-1.0); Calcium 8.7 mg/dL (8.5-10.1); Potassium 4.7 mmol/L (3.5-5.1); Total Protein 6.5 g/dL (6.4-8.2)
[2018-01-29] MEDS: INSULIN 70/30 1unit/0.01ml Susp (100units/ml) SC SCH (07:54)
[2018-01-29 08:30] VITALS: BP 139/70
[2018-01-29] MEDS ORDERED: cefTRIAXone 1GM/10ml IVPUSH 10 ML IV SCH (09:00)
[2018-01-29] MEDS: ASCORBIC ACID 500 MG TAB PO SCH ×2 (09:14→21:25)
[2018-01-29] MEDS: amLODIPine BESYLATE 5 MG TAB PO SCH (09:14)
[2018-01-29] MEDS: LORATADINE 10 MG TAB PO SCH (09:15)
[2018-01-29] MEDS: PANTOPRAZOLE 40 MG TAB PO SCH (09:15)
[2018-01-29] MEDS: MULTIPLE VITAMIN TAB PO SCH (09:15)
[2018-01-29] MEDS: LISINOPRIL 5 MG TAB PO SCH (09:15)
[2018-01-29] MEDS: DAKINS QUARTER STR 0.125% (NaHypochlorite) 473 ML TOPICAL SOL TOP SCH ×2 (09:16→22:01)
[2018-01-29] MEDS: ZINC SULFATE 220mg CAP or TAB PO SCH (09:16)
[2018-01-29] MEDS: FAMOTIDINE 20 MG TAB PO SCH ×2 (09:16→21:24)
[2018-01-29] MEDS: METOPROLOL SUCCINATE XL 50 MG TAB PO SCH (09:16)
[2018-01-29 12:30] VITALS: BP 123/48
[2018-01-29] MEDS ORDERED: LORazepam 2MG/ML-1ML VIAL IV ONE (13:00)
[2018-01-29] MEDS ORDERED: VANCOMYCIN PER PHARMACY 0 MG IV SCH (15:15)
[2018-01-29] MEDS: LEVOFLOXACIN 750MG 150 ML IV SCH (15:17)
[2018-01-29 17:09] VITALS: BP 150/71
[2018-01-29] MEDS: VANCOMYCIN 1GM/250ML 250 ML IV SCH (17:27)
[2018-01-29] MEDS: ATORVASTATIN 20 MG TAB PO SCH (21:25)
[2018-01-29 22:00] VITALS: BP 134/56
[2018-01-30 05:00] VITALS: BP 140/61
[2018-01-30] MEDS: ACCU-CHEK COMFORT CURVE STRIP VI SCH ×4 (06:32→21:48)
[2018-01-30] MEDS: InsuLIN REG 1unit/0.01ml Soln (100units/ml) SC SCH ×4 (06:32→21:48)
[2018-01-30] MEDS: SODIUM CHLOR 0.9% PF (SALINE LOCK) 10ML VIAL/SYR IV SCH ×4 (06:32→22:00)
[2018-01-30 07:23] LABS: BUN/Creatinine Ratio 17.7; Calcium 8.7 mg/dL (8.5-10.1); Potassium 4.4 mmol/L (3.5-5.1)
[2018-01-30 08:09] VITALS: BP 140/59
[2018-01-30 08:20] VITALS: BP 140/59
[2018-01-30] MEDS: INSULIN 70/30 1unit/0.01ml Susp (100units/ml) SC SCH (08:35)
[2018-01-30] MEDS: LISINOPRIL 5 MG TAB PO SCH (09:41)
[2018-01-30] MEDS: ASCORBIC ACID 500 MG TAB PO SCH ×2 (09:42→21:57)
[2018-01-30] MEDS: ZINC SULFATE 220mg CAP or TAB PO SCH (09:42)
[2018-01-30] MEDS: MULTIPLE VITAMIN TAB PO SCH (09:42)
[2018-01-30] MEDS: FAMOTIDINE 20 MG TAB PO SCH ×2 (09:42→21:57)
[2018-01-30] MEDS: amLODIPine BESYLATE 5 MG TAB PO SCH (09:43)
[2018-01-30] MEDS: LEVOFLOXACIN 750MG 150 ML IV SCH (09:43)
[2018-01-30] MEDS: LORATADINE 10 MG TAB PO SCH (09:43)
[2018-01-30] MEDS: PANTOPRAZOLE 40 MG TAB PO SCH (09:43)
[2018-01-30] MEDS: METOPROLOL SUCCINATE XL 50 MG TAB PO SCH (09:44)
[2018-01-30] MEDS: DAKINS QUARTER STR 0.125% (NaHypochlorite) 473 ML TOPICAL SOL TOP SCH ×2 (10:33→23:50)
[2018-01-30] MEDS: VANCOMYCIN 1GM/250ML 250 ML IV SCH (11:15)
[2018-01-30 12:28] VITALS: BP 132/47
[2018-01-30] MEDS ORDERED: LIDOCAINE 1% (LOCAL ANESTH.) PF 5ml SDV ID ONE (14:45)
[2018-01-30 16:47] VITALS: BP 129/65
[2018-01-30] MEDS: ATORVASTATIN 20 MG TAB PO SCH (21:57)
[2018-01-30 22:00] VITALS: BP 130/54
[2018-01-31 05:00] VITALS: BP 126/54
[2018-01-31] MEDS: VANCOMYCIN 1GM/250ML 250 ML IV SCH ×2 (05:38→23:22)
[2018-01-31] MEDS: ACCU-CHEK COMFORT CURVE STRIP VI SCH ×4 (06:24→22:10)
[2018-01-31] MEDS: SODIUM CHLOR 0.9% PF (SALINE LOCK) 10ML VIAL/SYR IV SCH ×5 (06:24→22:11)
[2018-01-31] MEDS: InsuLIN REG 1unit/0.01ml Soln (100units/ml) SC SCH ×4 (06:24→22:10)
[2018-01-31] MEDS: INSULIN 70/30 1unit/0.01ml Susp (100units/ml) SC SCH (08:13)
[2018-01-31 08:49] VITALS: BP 152/69
[2018-01-31] MEDS ORDERED: ENOXAPARIN SOD 40 MG/0.4 ML SYRINGE SC ONE (09:00)
[2018-01-31] MEDS: LISINOPRIL 5 MG TAB PO SCH (09:24)
[2018-01-31] MEDS: FAMOTIDINE 20 MG TAB PO SCH ×2 (09:25→22:10)
[2018-01-31] MEDS: METOPROLOL SUCCINATE XL 50 MG TAB PO SCH (09:25)
[2018-01-31] MEDS: PANTOPRAZOLE 40 MG TAB PO SCH (09:25)
[2018-01-31] MEDS: ZINC SULFATE 220mg CAP or TAB PO SCH (09:25)
[2018-01-31] MEDS: ASCORBIC ACID 500 MG TAB PO SCH ×2 (09:25→22:10)
[2018-01-31] MEDS: MULTIPLE VITAMIN TAB PO SCH (09:25)
[2018-01-31] MEDS: LEVOFLOXACIN 750MG 150 ML IV SCH (09:26)
[2018-01-31] MEDS: LORATADINE 10 MG TAB PO SCH (09:26)
[2018-01-31] MEDS: amLODIPine BESYLATE 5 MG TAB PO SCH (09:26)
[2018-01-31] MEDS: DAKINS QUARTER STR 0.125% (NaHypochlorite) 473 ML TOPICAL SOL TOP SCH ×2 (11:14→22:10)
[2018-01-31 13:02] VITALS: BP 135/76
[2018-01-31 16:42] VITALS: BP 135/59
[2018-01-31 20:00] VITALS: BP 125/58
[2018-01-31 22:00] VITALS: BP 127/58
[2018-01-31] MEDS: ATORVASTATIN 20 MG TAB PO SCH (22:09)
[2018-02-01 05:00] VITALS: BP 130/64
[2018-02-01 06:20] LABS: Basophils # (auto) 0.1 uL; Basophils % (auto) 0.9 % (0.0-2.0); Eosinophils # (auto) 0.3 uL; Eosinophils % (auto) 4.7 % (0.0-7.0); Hematocrit 39.9 % (41.0-53.0); Hemoglobin 13.7 g/dL (13.5-17.5); Lymphocytes # (auto) 1.5 uL; Lymphocytes % (auto) 20.8 % (10.0-50.0); Mean Corpuscular Hemoglobin 30.2 pg (28.0-32.0); Mean Corpuscular Hgb Conc. 34.2 g/dL (32.0-36.0); Mean Corpuscular Volume 88.1 fL (80.0-100.0); Monocytes # (auto) 0.7 uL; Monocytes % (auto) 9.7 % (0.0-12.0); Neutrophils # (auto) 4.6 uL; Neutrophils % (auto) 63.9 % (37.0-80.0); Nucleated Red Blood Cells % 0.1 %; Platelet Count (auto) 188 10^3/uL (140-450); Red Blood Cells 4.53 10^6/uL (4.5-5.90); Red Cell Distribution Width 14.4 % (11.8-14.3); White Blood Cell 7.2 10^3/uL (4.4-10.8)
[2018-02-01] MEDS: ACCU-CHEK COMFORT CURVE STRIP VI SCH ×4 (06:21→21:53)
[2018-02-01] MEDS: SODIUM CHLOR 0.9% PF (SALINE LOCK) 10ML VIAL/SYR IV SCH ×3 (06:21→21:53)
[2018-02-01] MEDS: InsuLIN REG 1unit/0.01ml Soln (100units/ml) SC SCH ×4 (06:21→21:53)
[2018-02-01 06:36] LABS: BUN/Creatinine Ratio 17.6; Calcium 8.2 mg/dL (8.5-10.1); Potassium 4.3 mmol/L (3.5-5.1)
[2018-02-01] MEDS: INSULIN 70/30 1unit/0.01ml Susp (100units/ml) SC SCH (08:00)
[2018-02-01 09:00] VITALS: BP 136/59
[2018-02-01] MEDS: MULTIPLE VITAMIN TAB PO SCH (10:00)
[2018-02-01] MEDS: LORATADINE 10 MG TAB PO SCH (10:00)
[2018-02-01] MEDS: PANTOPRAZOLE 40 MG TAB PO SCH (10:00)
[2018-02-01] MEDS: ASCORBIC ACID 500 MG TAB PO SCH ×2 (10:00→21:52)
[2018-02-01] MEDS: FAMOTIDINE 20 MG TAB PO SCH ×2 (10:00→21:52)
[2018-02-01] MEDS: DAKINS QUARTER STR 0.125% (NaHypochlorite) 473 ML TOPICAL SOL TOP SCH ×2 (10:00→21:38)
[2018-02-01] MEDS: ZINC SULFATE 220mg CAP or TAB PO SCH (10:00)
[2018-02-01] MEDS: LEVOFLOXACIN 750MG 150 ML IV SCH (10:30)
[2018-02-01] MEDS: METOPROLOL SUCCINATE XL 50 MG TAB PO SCH (10:31)
[2018-02-01] MEDS: LISINOPRIL 5 MG TAB PO SCH (10:31)
[2018-02-01] MEDS: amLODIPine BESYLATE 5 MG TAB PO SCH (10:32)
[2018-02-01] MEDS ORDERED: CLINDAMYCIN 600MG IV 50 ML IV ONE ×2 (12:47→13:09)
[2018-02-01] MEDS ORDERED: BUPIVACAINE 0.75% INJ 10ML MPV SDV IJ ONE (12:57)
[2018-02-01 13:00] VITALS: BP 158/67
[2018-02-01] MEDS ORDERED: MIDAZOLAM HCL 1MG/1ML-2 ML VIAL ONE (13:17)
[2018-02-01] MEDS ORDERED: fentaNYL CITRATE 100 MCG/2 ML VL ONE (13:17)
[2018-02-01] MEDS ORDERED: PROPOFOL 10 MG/ML 20 ML IV ONE (13:22)
[2018-02-01] MEDS ORDERED: NEOMYCIN-BACITRACIN-POLYM 15GM TOP OINT TOP ONE (13:30)
[2018-02-01] MEDS ORDERED: ePHEDrine SULFATE 50 MG/ML AMP IV PRN (13:45)
[2018-02-01] MEDS ORDERED: hydrALAZINE HCL 20 MG/ML VL IV PRN (13:45)
[2018-02-01] MEDS ORDERED: ONDANSETRON HCL 4 MG/2 ML VIAL IV ONE (13:45)
[2018-02-01] MEDS ORDERED: fentaNYL CITRATE 100 MCG/2 ML VL IV ONE (14:00)
[2018-02-01] MEDS: VANCOMYCIN 1GM/250ML 250 ML IV SCH (16:55)
[2018-02-01 17:00] VITALS: BP 161/70
[2018-02-01] MEDS: ATORVASTATIN 20 MG TAB PO SCH (21:52)
[2018-02-01 22:00] VITALS: BP 142/73
[2018-02-02] VITALS (7 sets, daily range): BP systolic 114–154; BP diastolic 58–72
[2018-02-02] MEDS: InsuLIN REG 1unit/0.01ml Soln (100units/ml) SC SCH ×4 (06:37→21:55)
[2018-02-02] MEDS: ACCU-CHEK COMFORT CURVE STRIP VI SCH ×4 (06:37→21:55)
[2018-02-02] MEDS: INSULIN 70/30 1unit/0.01ml Susp (100units/ml) SC SCH (08:57)
[2018-02-02] MEDS: HYDROcodone-ACET 5/325MG TAB PO PRN ×3 (09:03→21:54)
[2018-02-02] MEDS: DAKINS QUARTER STR 0.125% (NaHypochlorite) 473 ML TOPICAL SOL TOP SCH ×2 (10:00→21:57)
[2018-02-02] MEDS: SODIUM CHLOR 0.9% PF (SALINE LOCK) 10ML VIAL/SYR IV SCH ×2 (10:00→21:56)
[2018-02-02] MEDS: LEVOFLOXACIN 750MG 150 ML IV SCH (10:27)
[2018-02-02] MEDS: FAMOTIDINE 20 MG TAB PO SCH ×2 (10:28→21:54)
[2018-02-02] MEDS: PANTOPRAZOLE 40 MG TAB PO SCH (10:28)
[2018-02-02] MEDS: ASCORBIC ACID 500 MG TAB PO SCH ×2 (10:28→21:54)
[2018-02-02] MEDS: LISINOPRIL 5 MG TAB PO SCH (10:28)
[2018-02-02] MEDS: ZINC SULFATE 220mg CAP or TAB PO SCH (10:28)
[2018-02-02] MEDS: METOPROLOL SUCCINATE XL 50 MG TAB PO SCH (10:29)
[2018-02-02] MEDS: amLODIPine BESYLATE 5 MG TAB PO SCH (10:29)
[2018-02-02] MEDS: LORATADINE 10 MG TAB PO SCH (10:29)
[2018-02-02] MEDS: MULTIPLE VITAMIN TAB PO SCH (10:29)
[2018-02-02] MEDS: VANCOMYCIN 1GM/250ML 250 ML IV SCH (10:48)
[2018-02-02] MEDS: ATORVASTATIN 20 MG TAB PO SCH (21:55)
[2018-02-03] VITALS (7 sets, daily range): BP systolic 111–150; BP diastolic 50–75
[2018-02-03] MEDS: VANCOMYCIN 1GM/250ML 250 ML IV SCH ×2 (05:40→23:13)
[2018-02-03] MEDS: InsuLIN REG 1unit/0.01ml Soln (100units/ml) SC SCH ×4 (07:00→21:41)
[2018-02-03] MEDS: ACCU-CHEK COMFORT CURVE STRIP VI SCH ×4 (07:00→21:33)
[2018-02-03] MEDS: INSULIN 70/30 1unit/0.01ml Susp (100units/ml) SC SCH (08:14)
[2018-02-03] MEDS: LEVOFLOXACIN 750MG 150 ML IV SCH (09:59)
[2018-02-03] MEDS: DAKINS QUARTER STR 0.125% (NaHypochlorite) 473 ML TOPICAL SOL TOP SCH ×2 (10:00→22:00)
[2018-02-03] MEDS: SODIUM CHLOR 0.9% PF (SALINE LOCK) 10ML VIAL/SYR IV SCH ×2 (10:04→21:20)
[2018-02-03] MEDS: ZINC SULFATE 220mg CAP or TAB PO SCH (10:22)
[2018-02-03] MEDS: PANTOPRAZOLE 40 MG TAB PO SCH (10:23)
[2018-02-03] MEDS: LISINOPRIL 5 MG TAB PO SCH (10:23)
[2018-02-03] MEDS: amLODIPine BESYLATE 5 MG TAB PO SCH (10:24)
[2018-02-03] MEDS: METOPROLOL SUCCINATE XL 50 MG TAB PO SCH (10:24)
[2018-02-03] MEDS: ASCORBIC ACID 500 MG TAB PO SCH ×2 (10:24→21:20)
[2018-02-03] MEDS: FAMOTIDINE 20 MG TAB PO SCH ×2 (10:24→21:20)
[2018-02-03] MEDS: MULTIPLE VITAMIN TAB PO SCH (10:25)
[2018-02-03] MEDS: LORATADINE 10 MG TAB PO SCH (10:25)
[2018-02-03] MEDS: HYDROcodone-ACET 5/325MG TAB PO PRN ×2 (10:40→18:21)
[2018-02-03] MEDS: ATORVASTATIN 20 MG TAB PO SCH (21:20)
[2018-02-04] VITALS (7 sets, daily range): BP systolic 117–174; BP diastolic 50–71
[2018-02-04] MEDS: ACCU-CHEK COMFORT CURVE STRIP VI SCH ×4 (05:49→23:22)
[2018-02-04] MEDS: InsuLIN REG 1unit/0.01ml Soln (100units/ml) SC SCH ×4 (05:50→23:22)
[2018-02-04] MEDS: INSULIN 70/30 1unit/0.01ml Susp (100units/ml) SC SCH (08:16)
[2018-02-04] MEDS: DAKINS QUARTER STR 0.125% (NaHypochlorite) 473 ML TOPICAL SOL TOP SCH ×2 (10:00→22:00)
[2018-02-04] MEDS: METOPROLOL SUCCINATE XL 50 MG TAB PO SCH (10:00)
[2018-02-04] MEDS: FAMOTIDINE 20 MG TAB PO SCH ×2 (10:15→23:22)
[2018-02-04] MEDS: ASCORBIC ACID 500 MG TAB PO SCH ×2 (10:15→23:22)
[2018-02-04] MEDS: MULTIPLE VITAMIN TAB PO SCH (10:16)
[2018-02-04] MEDS: LORATADINE 10 MG TAB PO SCH (10:16)
[2018-02-04] MEDS: LISINOPRIL 5 MG TAB PO SCH (10:16)
[2018-02-04] MEDS: PANTOPRAZOLE 40 MG TAB PO SCH (10:17)
[2018-02-04] MEDS: SODIUM CHLOR 0.9% PF (SALINE LOCK) 10ML VIAL/SYR IV SCH ×2 (10:17→23:21)
[2018-02-04] MEDS: amLODIPine BESYLATE 5 MG TAB PO SCH (10:17)
[2018-02-04] MEDS: ZINC SULFATE 220mg CAP or TAB PO SCH (10:17)
[2018-02-04] MEDS: LEVOFLOXACIN 750MG 150 ML IV SCH (10:18)
[2018-02-04] MEDS: VANCOMYCIN 1GM/250ML 250 ML IV SCH (17:03)
[2018-02-04] MEDS: ATORVASTATIN 20 MG TAB PO SCH (23:21)
[2018-02-05 05:00] VITALS: BP 127/61
[2018-02-05] MEDS: ACCU-CHEK COMFORT CURVE STRIP VI SCH ×4 (05:54→21:33)
[2018-02-05] MEDS: InsuLIN REG 1unit/0.01ml Soln (100units/ml) SC SCH ×4 (05:55→21:33)
[2018-02-05 06:05] LABS: Basophils # (auto) 0.1 uL; Basophils % (auto) 0.9 % (0.0-2.0); Eosinophils # (auto) 0.3 uL; Eosinophils % (auto) 3.7 % (0.0-7.0); Hematocrit 40.7 % (41.0-53.0); Hemoglobin 13.7 g/dL (13.5-17.5); Lymphocytes # (auto) 1.5 uL; Lymphocytes % (auto) 20.6 % (10.0-50.0); Mean Corpuscular Hemoglobin 29.6 pg (28.0-32.0); Mean Corpuscular Hgb Conc. 33.8 g/dL (32.0-36.0); Mean Corpuscular Volume 87.5 fL (80.0-100.0); Monocytes # (auto) 0.6 uL; Monocytes % (auto) 8.6 % (0.0-12.0); Neutrophils # (auto) 4.8 uL; Neutrophils % (auto) 66.2 % (37.0-80.0); Platelet Count (auto) 209 10^3/uL (140-450); Red Blood Cells 4.65 10^6/uL (4.5-5.90); White Blood Cell 7.3 10^3/uL (4.4-10.8)
[2018-02-05 06:24] LABS: BUN/Creatinine Ratio 21.2; Calcium 8.6 mg/dL (8.5-10.1); Potassium 4.1 mmol/L (3.5-5.1)
[2018-02-05 08:19] VITALS: BP 121/55
[2018-02-05] MEDS: INSULIN 70/30 1unit/0.01ml Susp (100units/ml) SC SCH (08:36)
[2018-02-05] MEDS: DAKINS QUARTER STR 0.125% (NaHypochlorite) 473 ML TOPICAL SOL TOP SCH ×2 (10:00→21:33)
[2018-02-05] MEDS: LEVOFLOXACIN 750MG 150 ML IV SCH (10:13)
[2018-02-05] MEDS: SODIUM CHLOR 0.9% PF (SALINE LOCK) 10ML VIAL/SYR IV SCH ×2 (10:13→21:19)
[2018-02-05] MEDS: ZINC SULFATE 220mg CAP or TAB PO SCH (10:14)
[2018-02-05] MEDS: MULTIPLE VITAMIN TAB PO SCH (10:14)
[2018-02-05] MEDS: LORATADINE 10 MG TAB PO SCH (10:14)
[2018-02-05] MEDS: FAMOTIDINE 20 MG TAB PO SCH ×2 (10:15→21:19)
[2018-02-05] MEDS: amLODIPine BESYLATE 5 MG TAB PO SCH (10:15)
[2018-02-05] MEDS: PANTOPRAZOLE 40 MG TAB PO SCH (10:15)
[2018-02-05] MEDS: LISINOPRIL 5 MG TAB PO SCH (10:16)
[2018-02-05] MEDS: METOPROLOL SUCCINATE XL 50 MG TAB PO SCH (10:16)
[2018-02-05] MEDS: ASCORBIC ACID 500 MG TAB PO SCH ×2 (10:16→21:19)
[2018-02-05] MEDS: VANCOMYCIN 1GM/250ML 250 ML IV SCH (10:17)
[2018-02-05 12:31] VITALS: BP 126/59
[2018-02-05 17:08] VITALS: BP 120/61
[2018-02-05] MEDS: ATORVASTATIN 20 MG TAB PO SCH (21:19)
[2018-02-05 22:00] VITALS: BP 143/67
[2018-02-06] MEDS: VANCOMYCIN 1GM/250ML 250 ML IV SCH (05:03)
[2018-02-06] MEDS: InsuLIN REG 1unit/0.01ml Soln (100units/ml) SC SCH ×3 (06:03→17:33)
[2018-02-06] MEDS: ACCU-CHEK COMFORT CURVE STRIP VI SCH ×3 (06:04→17:26)
[2018-02-06 06:07] VITALS: BP 141/66
[2018-02-06] MEDS: INSULIN 70/30 1unit/0.01ml Susp (100units/ml) SC SCH (08:47)
[2018-02-06 09:00] VITALS: BP 139/53
[2018-02-06] MEDS: DAKINS QUARTER STR 0.125% (NaHypochlorite) 473 ML TOPICAL SOL TOP SCH (10:00)
[2018-02-06] MEDS: LEVOFLOXACIN 750MG 150 ML IV SCH (10:33)
[2018-02-06] MEDS: SODIUM CHLOR 0.9% PF (SALINE LOCK) 10ML VIAL/SYR IV SCH (10:34)
[2018-02-06] MEDS: MULTIPLE VITAMIN TAB PO SCH (10:35)
[2018-02-06] MEDS: LORATADINE 10 MG TAB PO SCH (10:35)
[2018-02-06] MEDS: ZINC SULFATE 220mg CAP or TAB PO SCH (10:35)
[2018-02-06] MEDS: FAMOTIDINE 20 MG TAB PO SCH (10:39)
[2018-02-06] MEDS: PANTOPRAZOLE 40 MG TAB PO SCH (10:39)
[2018-02-06] MEDS: METOPROLOL SUCCINATE XL 50 MG TAB PO SCH (10:41)
[2018-02-06] MEDS: ASCORBIC ACID 500 MG TAB PO SCH (10:42)
[2018-02-06] MEDS: LISINOPRIL 5 MG TAB PO SCH (10:42)
[2018-02-06] MEDS: amLODIPine BESYLATE 5 MG TAB PO SCH (10:44)
[2018-02-06 13:00] VITALS: BP 143/64
[2018-02-06] MEDS ORDERED: METR500T14 PO (15:03)
[2018-02-06 17:00] VITALS: BP 123/52
== END 2018-02-06 20:05 | disposition home health service (06) | DRG 503 ==
LOC: ER 05:54 → OVERFLOW 05:55 → WEST WING 20:15
PROVIDERS: ADMIT Internal Medicine; ATTEND Internal Medicine
PROC: 02HV33Z Insertion of Infusion Device into Superior Vena Cava, Percutaneous Approach (ICD-10-PCS; 2018-01-30)
PROC: 0QBM0ZZ Excision of Left Tarsal, Open Approach (ICD-10-PCS; principal; 2018-02-01 13:12)
DX: T87.44 Infection of amputation stump, left lower extremity (principal); N17.0 Acute kidney failure with tubular necrosis; L03.116 Cellulitis of left lower limb; E44.1 Mild protein-calorie malnutrition; M86.8X7 Other osteomyelitis, ankle and foot; N18.3 Chronic kidney disease, stage 3 (moderate); E11.621 Type 2 diabetes mellitus with foot ulcer; E11.21 Type 2 diabetes mellitus with diabetic nephropathy; E78.5 Hyperlipidemia, unspecified; L97.529 Non-pressure chronic ulcer of other part of left foot with unspecified severity; B96.20 Unspecified Escherichia coli [E. coli] as the cause of diseases classified elsewhere; E11.40 Type 2 diabetes mellitus with diabetic neuropathy, unspecified; F17.210 Nicotine dependence, cigarettes, uncomplicated; Y83.5 Amputation of limb(s) as the cause of abnormal reaction of the patient, or of later complication, without mention of misadventure at the time of the procedure; E11.69 Type 2 diabetes mellitus with other specified complication; I12.9 Hypertensive chronic kidney disease with stage 1 through stage 4 chronic kidney disease, or unspecified chronic kidney disease; E11.22 Type 2 diabetes mellitus with diabetic chronic kidney disease; E11.51 Type 2 diabetes mellitus with diabetic peripheral angiopathy without gangrene; E11.65 Type 2 diabetes mellitus with hyperglycemia; Z88.0 Allergy status to penicillin; Z79.899 Other long term (current) drug therapy; Z79.4 Long term (current) use of insulin; Z82.49 Family history of ischemic heart disease and other diseases of the circulatory system; Z89.432 Acquired absence of left foot; Z83.3 Family history of diabetes mellitus; Z90.49 Acquired absence of other specified parts of digestive tract; Z79.82 Long term (current) use of aspirin; Z79.02 Long term (current) use of antithrombotics/antiplatelets; Z68.25 Body mass index [BMI] 25.0-25.9, adult
CPT/HCPCS: 36415; 36569; 71045; 71046; 73700; 73718; 80048; 80053; 80202; 81001; 82565; 82962; 83036; 83605; 84443; 85025; 85610; 85652; 87040; 87070; 87075; 87076; 87077; 87081; 87186; 87205; 93005; 93306; 93926; 96372; 96374; 96375; 97163; J0696; J1815; J1956; J2250; J2704; J3490

== ENCOUNTER → 2018-04-03 | Day surgery (SDC) | payer MEDICARE, MEDICAID ==
[2018-03-29 13:21] LABS: Basophils # (auto) 0.1 uL; Basophils % (auto) 0.7 % (0.0-2.0); Eosinophils # (auto) 0.2 uL; Eosinophils % (auto) 2.4 % (0.0-7.0); Hematocrit 43.8 % (41.0-53.0); Hemoglobin 14.8 g/dL (13.5-17.5); Lymphocytes # (auto) 1.4 uL; Lymphocytes % (auto) 16.2 % (10.0-50.0); Mean Corpuscular Hemoglobin 29.4 pg (28.0-32.0); Mean Corpuscular Hgb Conc. 33.7 g/dL (32.0-36.0); Mean Corpuscular Volume 87.2 fL (80.0-100.0); Monocytes # (auto) 0.7 uL; Monocytes % (auto) 7.6 % (0.0-12.0); Neutrophils # (auto) 6.3 uL; Neutrophils % (auto) 73.1 % (37.0-80.0); Nucleated Red Blood Cells % 0.3 %; Platelet Count (auto) 236 10^3/uL (140-450); Red Blood Cells 5.03 10^6/uL (4.5-5.90); Red Cell Distribution Width 14.8 % (11.8-14.3); White Blood Cell 8.6 10^3/uL (4.4-10.8)
[2018-03-29 13:23] LABS: Urine Bacteria NONE SEEN /hpf (None Seen); Urine Blood 1+ /uL (Negative); Urine Specific Gravity 1.015 (1.001-1.035); Urine WBC 2 /hpf (0 - 3)
[2018-03-29 13:35] LABS: INR 0.87 (0.9-1.15); Partial Thromboplastin Time 28.2 sec (23.78-33.04); Prothrombin Time 9.4 sec (9.27-12.13)
[2018-03-29 13:39] LABS: Albumin 3.3 g/dL (3.4-5.0); Calcium 9.1 mg/dL (8.5-10.1); Potassium 4.4 mmol/L (3.5-5.1)
[2018-03-29 13:44] LABS: BUN/Creatinine Ratio 12.4; Bilirubin, Total 0.4 mg/dL (0.2-1.0); Total Protein 6.8 g/dL (6.4-8.2)
[~2018-04-03] VITALS: Ht 175.3 cm; Wt 81.2 kg
[~2018-04-03] MED LIST changes: +ACCU-CHEK COMFORT CURVE STRIP VI ONE; +AMLO5TAB13 PO; -AMLO5TAB2 PO; +BUPIVACAINE 0.75% INJ 10ML MPV SDV IJ ONE; +CLINDAMYCIN 600MG IV 50 ML IV ONE; -DOXY-216 PO; +HYDROmorphone HCL 2 MG/ML VL IV PRN; -ICOS1CAP OR; +LIDOCAINE 1% HCL (LOCAL ANESTH.) INJ 20ML MDV ONE; +MIDAZOLAM HCL 1MG/1ML-2 ML VIAL ONE; +NALOXONE HCL 0.4 MG/ML VIAL IV PRN; +NEOMYCIN-BACITRACIN-POLYM 15GM TOP OINT TOP ONE; -OMEP20CA74 OR; +OMEP20TA PO; +ONDANSETRON HCL 4 MG/2 ML VIAL IV ONE; +PROPOFOL 10 MG/ML 20 ML IV ONE; +SUCCINYLCHOLINE CHLORIDE 20 MG/ML 10ML VIAL IV ONE; -SULF400T11 PO; +ceFAZolin 1GM VL ONE; +fentaNYL CITRATE 100 MCG/2 ML VL ONE
[2018-04-03 10:59] VITALS: BP 134/67
== END | disposition home or self-care (01) ==
LOC: SUR 07:57
PROVIDERS: ATTEND Podiatrist Foot & Ankle Surgery
DX: E11.621 Type 2 diabetes mellitus with foot ulcer (principal); L97.529 Non-pressure chronic ulcer of other part of left foot with unspecified severity; E11.36 Type 2 diabetes mellitus with diabetic cataract; I73.9 Peripheral vascular disease, unspecified; M19.90 Unspecified osteoarthritis, unspecified site; J44.9 Chronic obstructive pulmonary disease, unspecified; E11.22 Type 2 diabetes mellitus with diabetic chronic kidney disease; I12.9 Hypertensive chronic kidney disease with stage 1 through stage 4 chronic kidney disease, or unspecified chronic kidney disease; N18.9 Chronic kidney disease, unspecified; K21.9 Gastro-esophageal reflux disease without esophagitis; F17.210 Nicotine dependence, cigarettes, uncomplicated; G47.30 Sleep apnea, unspecified; F41.9 Anxiety disorder, unspecified; Z98.890 Other specified postprocedural states; Z88.0 Allergy status to penicillin; Z83.3 Family history of diabetes mellitus; Z82.49 Family history of ischemic heart disease and other diseases of the circulatory system
CPT/HCPCS: 15004; 15275; 36415; 80053; 81001; 82962; 85025; 85610; 85730; 87070; 87075; 87077; 87186; 87205; 88304; C1887; J0330; J0690; J2001; J2250; J2704; J3010; J3490; Q4126